=== PATIENT | male | born 1955 | race African-American/Black ===

== ENCOUNTER 2016-07-28 10:23 | Inpatient (IN) | payer MEDICARE ==
[2016-07-28] VITALS (12 sets, daily range): BP systolic 111–161; BP diastolic 70–90
[~2016-07-28] VITALS: Ht 170.2 cm; Wt 207.3 kg
--- NOTE | 2016-07-28 10:57 | PHYS DOC ---
Past Medical History Past Medical History: Alcoholism, Seizure Past Surgical History: No Surgical History Alcohol Use: Heavy Drug Use: Other Social History Narrative: history of crack, unknown today Adult General Chief Complaint Chief Complaint: SEIZURE HPI HPI Patient is a 60-year-old male who presents via private vehicle by friend for having a seizure in the car. Female friend states he is an alcoholic and has been staying with her for the past few days. She noticed he has been asking for alcohol very frequently, so she thinks he is drinking less than usual. He does not answer questions at this time. Review of Systems Review of Systems Unable to assess secondary to altered mental status Current Medications Current Medications Current Medications Medications (Trade) Dose Ordered Sig/Jason Start Time Stop Time Status Last Admin Dose Admin Acetaminophen (Tylenol) 650 mg PRN Q4HRS PRN 07/28/16 11:30 07/29/16 11:29 Diazepam (Valium) 5 mg 1X ONCE 07/28/16 12:30 07/28/16 12:31 07/28/16 12:03 5 MG Lorazepam (Ativan) 2 mg 1X ONCE 07/28/16 10:45 07/28/16 10:46 DC 07/28/16 10:32 2 MG Ondansetron HCl (Zofran) 4 mg PRN Q8HRS PRN 07/28/16 11:30 07/29/16 11:29 Sodium Chloride 1,000 ml @ 150 mls/hr Q6H40M 07/28/16 11:27 07/29/16 11:26 Allergies Allergies Allergies Coded Allergies Type Severity Reaction Last Updated Verified No Known Drug Allergies 07/28/16 No Physical Exam Physical Exam Constitutional: Well developed, well nourished, severe distress, ill appearing. [] HENT: Normocephalic, atraumatic, bilateral external ears normal, oropharynx moist, no oral exudates, nose normal. [] Eyes: PERRLA, EOMI, conjunctiva normal, no discharge. [] Neck: Normal range of motion, no tenderness, supple, no stridor. [] Cardiovascular: Regular tachycardia [] Lungs & Thorax: Bilateral breath sounds clear to auscultation [] Abdomen: Bowel sounds normal, soft, no tenderness. [] Skin: Warm, diaphoretic, no erythema, no rash. [] Back: No palpable abnormality. [] Extremities: No tenderness, no edema. [] Neurologic: Sleepy, localizes painful stimuli, opens eyes to painful stimuli, moans to painful stimuli. [] Psychologic: Unable to assess secondary to altered mental status. [] Current Patient Data Vital Signs Vital Signs Date Time Temp Pulse Resp B/P (MAP) Pulse Ox O2 Delivery O2 Flow Rate FiO2 07/28/16 10:27 99.1 104 18 138/94 (109) 98 Room Air 99.1 Lab Values Laboratory Tests Test 07/28/16 10:30 07/28/16 10:55 White Blood Count 4.5 x10^3/uL (4.0-11.0) Red Blood Count 4.27 x10^6/uL (4.30-5.70) L Hemoglobin 13.7 g/dL (13.0-17.5) Hematocrit 39.4 % (39.0-53.0) Mean Corpuscular Volume 92 fL (79-100) Mean Corpuscular Hemoglobin 32 pg (25-35) Mean Corpuscular Hemoglobin Concent 35 g/dL (31-37) Red Cell Distribution Width 14.4 % (11.5-14.5) Platelet Count 111 x10^3/uL (140-400) L Neutrophils (%) (Auto) 42 % (31-73) Lymphocytes (%) (Auto) 39 % (24-48) Monocytes (%) (Auto) 13 % (0-9) H Eosinophils (%) (Auto) 5 % (0-3) H Basophils (%) (Auto) 2 % (0-3) Neutrophils # (Auto) 1.9 x10^3uL (1.8-7.7) Lymphocytes # (Auto) 1.7 x10^3/uL (1.0-4.8) Monocytes # (Auto) 0.6 x10^3/uL (0.0-1.1) Eosinophils # (Auto) 0.2 x10^3/uL (0.0-0.7) Basophils # (Auto) 0.1 x10^3/uL (0.0-0.2) Prothrombin Time 12.9 SEC (11.7-14.0) Prothrombin Time INR 1.0 (0.8-1.1) PTT 30 SEC (24-38) Sodium Level 143 mmol/L (136-145) Potassium Level 3.0 mmol/L (3.5-5.1) L Chloride Level 100 mmol/L (98-107) Carbon Dioxide Level 25 mmol/L (21-32) Anion Gap 18 (6-14) H Blood Urea Nitrogen 7 mg/dL (8-26) L Creatinine 1.1 mg/dL (0.7-1.3) Estimated GFR (Cockcroft-Gault) 68.5 Glucose Level 127 mg/dL (70-99) H Calcium Level 8.1 mg/dL (8.5-10.1) L Magnesium Level 1.4 mg/dL (1.8-2.4) L Total Bilirubin 2.8 mg/dL (0.2-1.0) H Direct Bilirubin 1.3 mg/dL (0.0-0.2) H Aspartate Amino Transferase (AST) 847 U/L (15-37) H Alanine Aminotransferase (ALT) 425 U/L (16-63) H Alkaline Phosphatase 111 U/L (46-116) Total Protein 7.8 g/dL (6.4-8.2) Albumin 3.5 g/dL (3.4-5.0) Ethyl Alcohol Level 15 mg/dL (0-10) H Urine Collection Type Unknown Urine Color [place] Urine Clarity Clear Urine pH 7.0 Urine Specific [place] 1.020 Urine Protein 100 mg/dL (NEG-TRACE) Urine Glucose (UA) Negative mg/dL (NEG) Urine Ketones (Stick) 40 mg/dL (NEG) Urine Blood Trace (NEG) Urine Nitrite Negative (NEG) Urine Bilirubin Negative (NEG) Urine Urobilinogen Dipstick 1.0 mg/dL (0.2 mg/dL) Urine Leukocyte Esterase Negative (NEG) Urine RBC 0 /HPF (0-2) Urine WBC 0 /HPF (0-4) Urine Squamous Epithelial Cells Occ /LPF Urine Bacteria 0 /HPF (0-FEW) Urine Hyaline Casts Few /HPF Urine Mucus Mod /LPF Urine Opiates Screen Neg (NEG) Urine Methadone Screen Neg (NEG) Urine Barbiturates Neg (NEG) Urine Phencyclidine Screen Neg (NEG) Urine Amphetamine/Methamphetamine Neg (NEG) Urine Benzodiazepines Screen Neg (NEG) Urine Cocaine Screen Neg (NEG) Urine Cannabinoids Screen Neg (NEG) Urine Ethyl Alcohol Pos (NEG) Laboratory Tests 07/28/16 10:30 Laboratory Tests 07/28/16 10:30 EKG EKG EKG as interpreted by me as sinus tachycardia, rate 110, no ST elevations, T- wave inversions in lateral leads, no ectopy, normal intervals Course & Med Decision Making Course & Med Decision Making Pertinent Labs and Imaging studies reviewed. (See chart for details) Patient arrived and had a witnessed seizure concerning for severe alcohol withdrawal. He has altered sensorium, but has made some improvement and is following commands under observation in the emergency department. His laboratory evaluation reveals hypokalemia, hypomagnesemia, and transaminitis. Potassium, magnesium, and banana bag ordered. He will be admitted to the ICU for alcohol withdrawal delirium. Discussed case with Dr. Abreu, who will admit. Draggiuliana Disclaimer Dragon Disclaimer This electronic medical record was generated, in whole or in part, using a voice recognition dictation system. Departure Departure Impression: Primary Impression: Alcohol withdrawal seizure Additional Impressions: Hypokalemia Hypomagnesemia Alcoholic hepatitis Disposition: ADMITTED INPATIENT Condition: CRITICAL Problem Qualifiers Primary Impression: Alcohol withdrawal seizure Complication of substance-induced condition: with delirium Qualified Codes: F10.231 - Alcohol dependence with withdrawal delirium Additional Impressions: Alcoholic hepatitis Ascites presence: without ascites Qualified Codes: K70.10 - Alcoholic hepatitis without ascites Sultana ESCALANTE MD Jul 28, 2016 10:57
[2016-07-28] MEDS ORDERED: IV NORMAL SALINE 1000ML BAG 1,000 ML IV ONE (11:00)
--- NOTE | 2016-07-28 11:03 | EKG ---
[facility] [address] [place] [address] Test Date: 2016-07-28 Test Time: 10:42:12 Pat Name: ARIC GAMING Department: Room: Gender: M [employer] Clerk: : [id number] Requested By: Sultana ESCALANTE Order Number: [id number] Reading MD: Angelique Dickson Measurements Intervals Seale Rate: 110 P: 44 NH: 144 QRS: 3 QRSD: 100 T: -176 QT: 356 QTc: 488 Interpretive Statements SINUS TACHYCARDIA ATRIAL PREMATURE COMPLEX(ES) LEFT ATRIAL ABNORMALITY LVH WITH REPOLARIZATION ABNORMALITY ALSO CONSIDER MYOCARDIAL ISCHEMIA ABNORMAL ECG RI6.01 No previous ECG available for comparison Electronically Signed On 07-30-2016 22:37:17 CDT by Angelique Dickson
[2016-07-28 11:10] LABS: BILIRUBIN,URINE NEGATIVE (NEG); GLUCOSE,URINE NEGATIVE (NEG); NITRITE,URINE NEGATIVE (NEG); PROTEIN,URINE 100 mg/dL (NEG-TRACE)
[2016-07-28 11:13] LABS: BASO # 0.1 x10^3/uL (0.0-0.2); BASO % 2 % (0-3); EOS % 5 % (0-3); HEMATOCRIT 39.4 % (39.0-53.0); HEMOGLOBIN 13.7 g/dL (13.0-17.5); LYMPH # 1.7 x10^3/uL (1.0-4.8); LYMPH % 39 % (24-48); MEAN CORPUSCULAR HEMOGLOBIN 32 pg (25-35); MEAN CORPUSCULAR HGB CONC 35 g/dL (31-37); MEAN CORPUSCULAR VOLUME 92 fL (79-100); MONO % 13 % (0-9); NEUT % 42 % (31-73); PLATELET COUNT 111 x10^3/uL (140-400); PROTHROMBIN TIME PATIENT 12.9 SEC (11.7-14.0); RED BLOOD COUNT 4.27 x10^6/uL (4.30-5.70); RED CELL DISTRIBUTION WIDTH 14.4 % (11.5-14.5); WHITE BLOOD COUNT 4.5 x10^3/uL (4.0-11.0)
[2016-07-28 11:16] LABS: CALCIUM 8.1 mg/dL (8.5-10.1); CREATININE 1.1 mg/dL (0.7-1.3); GFR 68.5
[2016-07-28 11:19] LABS: BARBITURATES NEG (NEG); BENZODIAZEPINES NEG (NEG); CANNABINOIDS NEG (NEG); COCAINE NEG (NEG); METHADONE NEG (NEG); OPIATES NEG (NEG); PHENCYCLIDINE NEG (NEG)
--- NOTE | 2016-07-28 11:19 | ACF ---
Admission Forms Criteria SEIZURE Clinical Indications for Admission to Inpatient Care (Place 'X' for any and all applicable criteria): Admission is indicated for seizure and ANY ONE of the following(1)(2)(3)(4)(5): [X]I. Inpatient admission required rather than observation care (Also use Seizure: Observation Care Criteria as appropriate) because of ANY ONE of the following: [ ]a) Altered mental status that is severe or persistent [ ]b) New focal neurologic deficit that is severe or persistent [ ]c) Metabolic disorder (eg, hypoglycemia, hyponatremia) that is severe or persistent [X]d) Recurrent seizure [ ]e) Outpatient antiseizure regimen cannot be established (eg , patient cannot tolerate medication, initiation requires inpatient care) [ ]f) Need for ongoing intravenous infusion of antiseizure medication [ ]g) Cardiac arrhythmias of immediate concern [ ]h) Cerebral bleeding, hydrocephalus, or vasospasm monitoring (14) [ ]i) Increased intracranial pressure or cerebral edema monitoring (15) [ ]j) Other treatment or monitoring requiring inpatient admission [ ]II. Status epilepticus [A] or repetitive seizures not controlled with emergent treatment (6)(8) [ ]III. Brain disorder (eg, tumor, edema, and hydrocephalus) that requiring monitoring or intervention available only at inpatient level of care. [ ]IV. Brain insult (eg, severe trauma, stroke, drug toxicity, or withdrawal) that requires monitoring or intervention available only at inpatient level of care (10)(11) Extended stay beyond goal length of stay may be needed for (22) [ ]a) Complications of status epilepticus [ ]b) Refractory status epilepticus [ ]c) Etiology-specific therapy for conditions such as [employer] infection, head injury,eclampsia, severe metabolic abnormalities, and brain tumor [ ]d) Residual neurologic damage, [ ]e) Initiation of significant change to anticonvulsant treatment [ ]f) Older patients (65 years or older) [ ]g) Patient requiring intubation (eg, to protect airway) The original [employer] content created by [employer] has been revised. The portions of the content which have been revised are identified through the use of italic text or in bold, and [employer] has neither reviewed nor approved the modified material. All other unmodified content is copyright [facility] [employer]. Please see references footnoted in the original [facility] edition 2016 Admission Criteria Met?: Yes AJ MARIE Jul 28, 2016 11:19
[2016-07-28 11:21] LABS: RBC,URINE 0 /HPF (0-2); WBC,URINE 0 /HPF (0-4)
[2016-07-28 11:22] LABS: BACTERIA,URINE 0 /HPF (0-FEW); SQUAMOUS EPITHELIAL CELL,UR OCC /LPF
--- NOTE | 2016-07-28 11:23 | ACF ---
Admit Criteria Forms Admit Criteria Forms Admit Criteria Forms ALCOHOL AND PSYCHOACTIVE SUBSTANCE WITHDRAWAL Clinical Indications for Inpatient Care (Place ' X' for any and all applicable criteria): Ongoing inpatient care may be indicated for substance withdrawal[B][C] with ANY ONE of the following(1)(2)(3)(4)(21): [ ]I. Delirium due to alcohol or sedative[D] withdrawal is present. [X]II. Marked signs of withdrawal are present as indicated by ANY ONE of the following(15)(22)(23) [ ]a) Heart rate greater than 120 beats per minute is present. [ ]b) Severe vomiting is present (eg, precludes maintenance of oral hydration). [ ]c) Grossly visible tremor is present. [ ]d) Profuse perspiration is present. [ ]e) Temperature greater than 101 degrees F (38.3 degrees C) is present. [X]f) Other signs of severe withdrawal are present (eg, Altered mental status ) [ ]g) Severe withdrawal identified by standardized assessment score[A] [ ]III. Signs of withdrawal that require continued inpatient treatment as indicated by ANY ONE of the following(15)(22)(23): [ ]a) Inadequate response to pharmacotherapy (eg, benzodiazepines) [ ]b) Outpatient or lower level of care is not feasible or appropriate (eg, unavailable or inappropriate to patient condition or treatment history). [X]IV. Withdrawal signs with high-risk indicator are present as manifested by ALL of the following[A](15)(22)(23) [X]a) Signs of withdrawal are present as indicated by ANY ONE of the following: [ ]i. Tachycardia is present. [ ]ii. Nausea or vomiting is present. [ ]iii. Tremor is present. [ ]iv. Increased perspiration is present. [X]v. Other signs of withdrawal are present. [ ]vi. Withdrawal identified by standardized assessment score [A] [ ]b) Elevated risk due to historical or comorbid factor is present as indicated by ANY ONE of the following: [ ]i. History of delirium due to withdrawal is present. [ ]ii. History of seizures due to withdrawal is present.[E] [ ]iii. Intrinsic seizure disorder (epilepsy) is present. [ ]iv. Patient is . [ ]v. Other significant medical history (eg, severe cardiac disease) is present, which is assessed to be at risk for destabilization due to withdrawal. [ ]V. Serious electrolyte abnormalities (eg, hyponatremia, hypokalemia, hypophosphatemia) requiring correction performable only in inpatient setting(6)(25) [ ]. Severe hypoglycemia requiring glucose infusions performable only in inpatient setting(6) [ ]VII. Drug toxicity or instability, such as Altered mental status, respiratory depression, or arrhythmias, that requires inpatient care [ ]VIII. Danger judged unmanageable at lower level of care because of ANY ONE of the following [ ]a) Danger to self [ ]b) Danger to others [ ]c) Grave disability (eg, inability to perform self-care necessary at lower level of care) The original [employer] content created by [employer] has been revised. The portions of the content which have been revised are identified through the use of italic text or in bold. [facility] has neither reviewed nor approved the modified material. All other unmodified content is copyright [employer]. Please see references footnoted in the original [employer] edition 2016 YENY WINTER Jul 28, 2016 11:23
--- NOTE | 2016-07-28 11:23 | RAD ---
Indication change in mental status. Seizure. Noncontrast images of the head were obtained. No prior imaging of the head is available. The calvarium appears unremarkable. The visualized paranasal sinuses appear normal. There is no subdural or epidural hematoma. There is moderate atrophy. There is no mass or midline shift. No hemorrhage is seen. An acute intracranial finding is not apparent. IMPRESSION: No acute intracranial finding seen PQRS Compliance Statement: One or more of the following individualized dose reduction techniques were utilized for this examination: 1. Automated exposure control 2. Adjustment of the mA and/or kV according to patient size 3. Use of iterative reconstruction technique
[2016-07-28 11:30] LABS: ALBUMIN 3.5 g/dL (3.4-5.0); DIRECT BILIRUBIN 1.3 mg/dL (0.0-0.2); MAGNESIUM 1.4 mg/dL (1.8-2.4); TOTAL BILIRUBIN 2.8 mg/dL (0.2-1.0); TOTAL PROTEIN 7.8 g/dL (6.4-8.2)
[2016-07-28] MEDS ORDERED: ACETAMINOPHEN 325 MG TABLET. PO PRN (11:30)
[2016-07-28] MEDS ORDERED: ONDANSETRON PF 4 MG/2 ML VIAL. IV PRN (11:30)
[2016-07-28] MEDS: POTASSIUM CHLORIDE 10MEQ 100 ML IV SCH ×4 (12:47→17:14)
[2016-07-28] MEDS ORDERED: MAGNESIUM SULFATE 2GM 50 ML IV ONE (13:00)
[2016-07-28] MEDS ORDERED: MULTIVIT INFUSN,ADULT 4,VIT K 10 ML, FOLIC ACID 1 MG, THIAMINE 100 MG in IV NORMAL SALI... IV SCH (13:00)
[2016-07-28] MEDS: IV NORMAL SALINE 1000ML BAG 1,000 ML IV SCH ×2 (13:43→21:16)
[2016-07-28] MEDS ORDERED: HALOPERIDOL LACTATE 5 MG/ML VIAL. IVP PRN (14:45)
--- NOTE | 2016-07-28 18:40 | HP ---
ADMIT DATE: 07/28/2016 CHIEF COMPLAINT: Possible alcohol withdrawal seizure. HISTORY OF PRESENT ILLNESS: The patient is a pleasant middle-aged male who drinks too much. He had a seizure. We suspect it is alcohol related. I have discussed the case with the ER physician. We are going to admit the patient and give him alcohol withdrawal protocol. PAST MEDICAL HISTORY: Alcoholism and previous alcohol seizures. ALLERGIES: None. FAMILY HISTORY: Diabetes. SOCIAL HISTORY: He drinks, he smokes. No drugs. MEDICATIONS: Reviewed. REVIEW OF SYSTEMS: GENERAL: No history of weight change, weakness or fevers. SKIN: No bruising, hair changes or rashes. EYES: No blurred, double or loss of vision. NOSE AND THROAT: No history of nosebleeds, hoarseness or sore throat. HEART: No history of palpitations, chest pain or shortness of breath on exertion. LUNGS: Denies cough, hemoptysis, wheezing or shortness of breath. GASTROINTESTINAL: Denies changes in appetite, nausea, vomiting, diarrhea or constipation. GENITOURINARY: No history of frequency, urgency, hesitancy or nocturia. NEUROLOGIC: He complains of alcohol withdrawal and shaking. PSYCHIATRIC: No history of panic, anxiety or depression. ENDOCRINE: No history of heat or cold intolerance, polyuria or polydipsia. EXTREMITIES: Denies muscle weakness, joint pain, pain on walking or stiffness. PHYSICAL EXAMINATION: VITAL SIGNS: Temperature afebrile, pulse 90, respirations 18, blood pressure 144/90. GENERAL: He is alert, cooperative. HEART: Normal S1, S2. LUNGS: Clear. ABDOMEN: Soft, positive bowel sounds. EXTREMITIES: No edema. ENDOCRINE: No thyromegaly. LYMPHATICS: No cervical nodes. HEMATOPOIETIC: No bruising. SKIN: No rashes. NEUROLOGICAL: He is a little shaky. ASSESSMENT AND PLAN: Alcohol withdrawal with possible seizure. The patient has been admitted. We will give him alcohol withdrawal protocol including IV benzos, IV thiamine, and IV banana bag. Try to resume his home meds. KYLE BARBOZA DO DR: JASWANT/asmita JOB#: [id number] / [id number]
[2016-07-29] VITALS (12 sets, daily range): BP systolic 105–164; BP diastolic 30–88
[2016-07-29] MEDS: LORazepam 1 MG TABLET PO PRN (00:45)
[2016-07-29] MEDS: IV NORMAL SALINE 1000ML BAG 1,000 ML IV SCH (04:27)
[2016-07-29] MEDS ORDERED: ONDANSETRON PF 4 MG/2 ML VIAL. IV PRN (08:50)
[2016-07-29] MEDS: MULTIVIT INFUSN,ADULT 4,VIT K 10 ML, THIAMINE 100 MG, FOLIC ACID 1 MG in IV NORMAL SALI... IV SCH (09:00)
--- NOTE | 2016-07-29 09:49 | PDOC ---
PROGRESS NOTES Chief Complaint Chief Complaint 1. Acute toxic encephalopathy sec to alcohol intox 2. Unsteady gait 3. HYpokalemia, hypomagnesemia 4. DOM vasomotor 5. 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 Vitals Vital Signs Date Time Temp Pulse Resp B/P (MAP) Pulse Ox O2 Delivery O2 Flow Rate FiO2 07/29/16 06:00 72 16 129/77 (94) 100 Room Air 07/29/16 04:00 97.3 97.3 07/28/16 16:00 2.0 Physical Exam General: Alert, Oriented X3, Cooperative Heart: Regular rate Lungs: Clear Abdomen: Normal bowel sounds Extremities: No clubbing Skin: No rashes Labs LABS Laboratory Tests Test 07/28/16 10:30 07/28/16 10:55 07/28/16 13:40 White Blood Count 4.5 x10^3/uL (4.0-11.0) Red Blood Count 4.27 x10^6/uL (4.30-5.70) Hemoglobin 13.7 g/dL (13.0-17.5) Hematocrit 39.4 % (39.0-53.0) Mean Corpuscular Volume 92 fL (79-100) Mean Corpuscular Hemoglobin 32 pg (25-35) Mean Corpuscular Hemoglobin Concent 35 g/dL (31-37) Red Cell Distribution Width 14.4 % (11.5-14.5) Platelet Count 111 x10^3/uL (140-400) Neutrophils (%) (Auto) 42 % (31-73) Lymphocytes (%) (Auto) 39 % (24-48) Monocytes (%) (Auto) 13 % (0-9) Eosinophils (%) (Auto) 5 % (0-3) Basophils (%) (Auto) 2 % (0-3) Neutrophils # (Auto) 1.9 x10^3uL (1.8-7.7) Lymphocytes # (Auto) 1.7 x10^3/uL (1.0-4.8) Monocytes # (Auto) 0.6 x10^3/uL (0.0-1.1) Eosinophils # (Auto) 0.2 x10^3/uL (0.0-0.7) Basophils # (Auto) 0.1 x10^3/uL (0.0-0.2) Prothrombin Time 12.9 SEC (11.7-14.0) Prothromb Time International Ratio 1.0 (0.8-1.1) Activated Partial Thromboplast Time 30 SEC (24-38) Sodium Level 143 mmol/L (136-145) Potassium Level 3.0 mmol/L (3.5-5.1) Chloride Level 100 mmol/L (98-107) Carbon Dioxide Level 25 mmol/L (21-32) Anion Gap 18 (6-14) Blood Urea Nitrogen 7 mg/dL (8-26) Creatinine 1.1 mg/dL (0.7-1.3) Estimated GFR (Cockcroft-Gault) 68.5 Glucose Level 127 mg/dL (70-99) Calcium Level 8.1 mg/dL (8.5-10.1) Magnesium Level 1.4 mg/dL (1.8-2.4) Total Bilirubin 2.8 mg/dL (0.2-1.0) Direct Bilirubin 1.3 mg/dL (0.0-0.2) Aspartate Amino Transf (AST/SGOT) 847 U/L (15-37) Alanine Aminotransferase (ALT/SGPT) 425 U/L (16-63) Alkaline Phosphatase 111 U/L (46-116) Total Protein 7.8 g/dL (6.4-8.2) Albumin 3.5 g/dL (3.4-5.0) Ethyl Alcohol Level 15 mg/dL (0-10) Urine Collection Type Unknown Urine Color [place] Urine Clarity Clear Urine pH 7.0 Urine Specific [place] 1.020 Urine Protein 100 mg/dL (NEG-TRACE) Urine Glucose (UA) Negative mg/dL (NEG) Urine Ketones (Stick) 40 mg/dL (NEG) Urine Blood Trace (NEG) Urine Nitrite Negative (NEG) Urine Bilirubin Negative (NEG) Urine Urobilinogen Dipstick 1.0 mg/dL (0.2 mg/dL) Urine Leukocyte Esterase Negative (NEG) Urine RBC 0 /HPF (0-2) Urine WBC 0 /HPF (0-4) Urine Squamous Epithelial Cells Occ /LPF Urine Bacteria 0 /HPF (0-FEW) Urine Hyaline Casts Few /HPF Urine Mucus Mod /LPF Urine Opiates Screen Neg (NEG) Urine Methadone Screen Neg (NEG) Urine Barbiturates Neg (NEG) Urine Phencyclidine Screen Neg (NEG) Urine Amphetamine/Methamphetamine Neg (NEG) Urine Benzodiazepines Screen Neg (NEG) Urine Cocaine Screen Neg (NEG) Urine Cannabinoids Screen Neg (NEG) Urine Ethyl Alcohol Pos (NEG) Nasal Screen MRSA (PCR) Negative (Negative) Review of Systems Review of Systems unsteady gait, shaky all else is neg Assessment and Plan Assessmemt and Plan Problems Medical Problems: (1) Alcohol withdrawal seizure Status: Acute (2) Alcoholic hepatitis Status: Acute (3) Hypokalemia Status: Acute (4) Hypomagnesemia Status: Acute Problems: Comment Review of Relevant I have reviewed the following items serafin (where applicable) has been applied. Labs Laboratory Tests Test 07/28/16 10:30 07/28/16 10:55 07/28/16 13:40 White Blood Count 4.5 x10^3/uL (4.0-11.0) Red Blood Count 4.27 x10^6/uL (4.30-5.70) Hemoglobin 13.7 g/dL (13.0-17.5) Hematocrit 39.4 % (39.0-53.0) Mean Corpuscular Volume 92 fL (79-100) Mean Corpuscular Hemoglobin 32 pg (25-35) Mean Corpuscular Hemoglobin Concent 35 g/dL (31-37) Red Cell Distribution Width 14.4 % (11.5-14.5) Platelet Count 111 x10^3/uL (140-400) Neutrophils (%) (Auto) 42 % (31-73) Lymphocytes (%) (Auto) 39 % (24-48) Monocytes (%) (Auto) 13 % (0-9) Eosinophils (%) (Auto) 5 % (0-3) Basophils (%) (Auto) 2 % (0-3) Neutrophils # (Auto) 1.9 x10^3uL (1.8-7.7) Lymphocytes # (Auto) 1.7 x10^3/uL (1.0-4.8) Monocytes # (Auto) 0.6 x10^3/uL (0.0-1.1) Eosinophils # (Auto) 0.2 x10^3/uL (0.0-0.7) Basophils # (Auto) 0.1 x10^3/uL (0.0-0.2) Prothrombin Time 12.9 SEC (11.7-14.0) Prothromb Time International Ratio 1.0 (0.8-1.1) Activated Partial Thromboplast Time 30 SEC (24-38) Sodium Level 143 mmol/L (136-145) Potassium Level 3.0 mmol/L (3.5-5.1) Chloride Level 100 mmol/L (98-107) Carbon Dioxide Level 25 mmol/L (21-32) Anion Gap 18 (6-14) Blood Urea Nitrogen 7 mg/dL (8-26) Creatinine 1.1 mg/dL (0.7-1.3) Estimated GFR (Cockcroft-Gault) 68.5 Glucose Level 127 mg/dL (70-99) Calcium Level 8.1 mg/dL (8.5-10.1) Magnesium Level 1.4 mg/dL (1.8-2.4) Total Bilirubin 2.8 mg/dL (0.2-1.0) Direct Bilirubin 1.3 mg/dL (0.0-0.2) Aspartate Amino Transf (AST/SGOT) 847 U/L (15-37) Alanine Aminotransferase (ALT/SGPT) 425 U/L (16-63) Alkaline Phosphatase 111 U/L (46-116) Total Protein 7.8 g/dL (6.4-8.2) Albumin 3.5 g/dL (3.4-5.0) Ethyl Alcohol Level 15 mg/dL (0-10) Urine Collection Type Unknown Urine Color [place] Urine Clarity Clear Urine pH 7.0 Urine Specific [place] 1.020 Urine Protein 100 mg/dL (NEG-TRACE) Urine Glucose (UA) Negative mg/dL (NEG) Urine Ketones (Stick) 40 mg/dL (NEG) Urine Blood Trace (NEG) Urine Nitrite Negative (NEG) Urine Bilirubin Negative (NEG) Urine Urobilinogen Dipstick 1.0 mg/dL (0.2 mg/dL) Urine Leukocyte Esterase Negative (NEG) Urine RBC 0 /HPF (0-2) Urine WBC 0 /HPF (0-4) Urine Squamous Epithelial Cells Occ /LPF Urine Bacteria 0 /HPF (0-FEW) Urine Hyaline Casts Few /HPF Urine Mucus Mod /LPF Urine Opiates Screen Neg (NEG) Urine Methadone Screen Neg (NEG) Urine Barbiturates Neg (NEG) Urine Phencyclidine Screen Neg (NEG) Urine Amphetamine/Methamphetamine Neg (NEG) Urine Benzodiazepines Screen Neg (NEG) Urine Cocaine Screen Neg (NEG) Urine Cannabinoids Screen Neg (NEG) Urine Ethyl Alcohol Pos (NEG) Nasal Screen MRSA (PCR) Negative (Negative) Laboratory Tests Test 07/28/16 10:30 07/28/16 10:55 07/28/16 13:40 White Blood Count 4.5 x10^3/uL (4.0-11.0) Red Blood Count 4.27 x10^6/uL (4.30-5.70) Hemoglobin 13.7 g/dL (13.0-17.5) Hematocrit 39.4 % (39.0-53.0) Mean Corpuscular Volume 92 fL (79-100) Mean Corpuscular Hemoglobin 32 pg (25-35) Mean Corpuscular Hemoglobin Concent 35 g/dL (31-37) Red Cell Distribution Width 14.4 % (11.5-14.5) Platelet Count 111 x10^3/uL (140-400) Neutrophils (%) (Auto) 42 % (31-73) Lymphocytes (%) (Auto) 39 % (24-48) Monocytes (%) (Auto) 13 % (0-9) Eosinophils (%) (Auto) 5 % (0-3) Basophils (%) (Auto) 2 % (0-3) Neutrophils # (Auto) 1.9 x10^3uL (1.8-7.7) Lymphocytes # (Auto) 1.7 x10^3/uL (1.0-4.8) Monocytes # (Auto) 0.6 x10^3/uL (0.0-1.1) Eosinophils # (Auto) 0.2 x10^3/uL (0.0-0.7) Basophils # (Auto) 0.1 x10^3/uL (0.0-0.2) Prothrombin Time 12.9 SEC (11.7-14.0) Prothromb Time International Ratio 1.0 (0.8-1.1) Activated Partial Thromboplast Time 30 SEC (24-38) Sodium Level 143 mmol/L (136-145) Potassium Level 3.0 mmol/L (3.5-5.1) Chloride Level 100 mmol/L (98-107) Carbon Dioxide Level 25 mmol/L (21-32) Anion Gap 18 (6-14) Blood Urea Nitrogen 7 mg/dL (8-26) Creatinine 1.1 mg/dL (0.7-1.3) Estimated GFR (Cockcroft-Gault) 68.5 Glucose Level 127 mg/dL (70-99) Calcium Level 8.1 mg/dL (8.5-10.1) Magnesium Level 1.4 mg/dL (1.8-2.4) Total Bilirubin 2.8 mg/dL (0.2-1.0) Direct Bilirubin 1.3 mg/dL (0.0-0.2) Aspartate Amino Transf (AST/SGOT) 847 U/L (15-37) Alanine Aminotransferase (ALT/SGPT) 425 U/L (16-63) Alkaline Phosphatase 111 U/L (46-116) Total Protein 7.8 g/dL (6.4-8.2) Albumin 3.5 g/dL (3.4-5.0) Ethyl Alcohol Level 15 mg/dL (0-10) Urine Collection Type Unknown Urine Color [place] Urine Clarity Clear Urine pH 7.0 Urine Specific [place] 1.020 Urine Protein 100 mg/dL (NEG-TRACE) Urine Glucose (UA) Negative mg/dL (NEG) Urine Ketones (Stick) 40 mg/dL (NEG) Urine Blood Trace (NEG) Urine Nitrite Negative (NEG) Urine Bilirubin Negative (NEG) Urine Urobilinogen Dipstick 1.0 mg/dL (0.2 mg/dL) Urine Leukocyte Esterase Negative (NEG) Urine RBC 0 /HPF (0-2) Urine WBC 0 /HPF (0-4) Urine Squamous Epithelial Cells Occ /LPF Urine Bacteria 0 /HPF (0-FEW) Urine Hyaline Casts Few /HPF Urine Mucus Mod /LPF Urine Opiates Screen Neg (NEG) Urine Methadone Screen Neg (NEG) Urine Barbiturates Neg (NEG) Urine Phencyclidine Screen Neg (NEG) Urine Amphetamine/Methamphetamine Neg (NEG) Urine Benzodiazepines Screen Neg (NEG) Urine Cocaine Screen Neg (NEG) Urine Cannabinoids Screen Neg (NEG) Urine Ethyl Alcohol Pos (NEG) Nasal Screen MRSA (PCR) Negative (Negative) Medications Current Medications Lorazepam (Ativan) 2 mg STK-MED ONCE .ROUTE ; Start 07/28/16 at 10:31; Stop at 10:32; Status DC Lorazepam (Ativan) 2 mg 1X ONCE IV Last administered on 07/28/16 10:32; Start 07/28/16 at 10:45; Stop 07/28/16 at 10:46; Status DC Sodium Chloride 1,000 ml @ 1,000 mls/hr 1X ONCE IV Last administered on 10:50; Start 07/28/16 at 11:00; Stop 07/28/16 at 11:59; Status DC Diazepam (Valium) 10 mg 1X ONCE IV Last administered on 07/28/16 11:20; Start 07/28/16 at 11:00; Stop 07/28/16 at 11:01; Status DC Ondansetron HCl (Zofran) 4 mg PRN Q8HRS PRN IV NAUSEA/VOMITING; Start 07/28/16 at 11:30; Stop 07/29/16 at 08:51; Status DC Sodium Chloride 1,000 ml @ 150 mls/hr Q6H40M IV Last administered on 07/29/16 04:27; Start 07/28/16 at 11:27; Stop 07/29/16 at 11:26 Acetaminophen (Tylenol) 650 mg PRN Q4HRS PRN PO FEVER Last administered on 00:31; Start 07/28/16 at 11:30; Stop 07/29/16 at 11:29 Diazepam (Valium) 5 mg 1X ONCE IV Last administered on 07/28/16 12:03; Start 07/28/16 at 12:30; Stop 07/28/16 at 12:31; Status DC Multivitamins 10 ml/Folic Acid 1 mg/Thiamine HCl 100 mg/Sodium Chloride 1,011.2 ml @ 1,000 mls/ hr Q1H IV Last administered on 07/28/16 12:40; Start 07/28/16 at 13:00; Stop 07/28/16 at 13:05; Status DC Potassium Chloride 100 ml @ 100 mls/hr Q1H IV Last administered on 07/28/16 17 :14; Start 07/28/16 at 13:00; Stop 07/28/16 at 16:59; Status DC Magnesium Sulfate/ Dextrose 50 ml @ 25 mls/hr 1X ONCE IV Last administered on 07/28/16 15:06; Start 07/28/16 at 13:00; Stop 07/28/16 at 14:59; Status DC Multivitamins 10 ml/Thiamine HCl 100 mg/Folic Acid 1 mg/Sodium Chloride 1,011.2 ml @ 100 mls/ hr DAILY IV ; Start 07/29/16 at 09:00; Stop 08/03/16 at 08:59 Lorazepam (Ativan) 4 mg PRN Q1HR PRN PO For CIWA 8-14 Last administered on 00:45; Start 07/28/16 at 14:45 Haloperidol Lactate (Haldol) 5 mg PRN Q4HRS PRN IVP Hallucinatns,Confusn, Delirium; Start 07/28/16 at 14:45 Diazepam (Valium) 5 mg PRN Q5MIN PRN IV SEE COMMENT; Start 07/28/16 at 14:45 Ondansetron HCl (Zofran) 4 mg PRN Q6HRS PRN IV NAUSEA/VOMITING; Start 07/29/16 at 08:50; Stop 07/30/16 at 08:49 Alprazolam (Xanax) 0.25 mg PRN Q8HRS PRN PO ANXIETY / AGITATION; Start 07/29/16 at 09:00 Vitals/I & O Vital Sign - Last 24 Hours 07/28/16 07/28/16 07/28/16 07/28/16 10:27 10:30 10:45 11:15 Temp 99.1 99.1 Pulse 104 141 113 96 Resp 18 20 B/P (MAP) 138/94 (109) 195/107 (136) 118/81 (93) 125/77 (93) Pulse Ox 98 93 98 99 O2 Delivery Room Air Nasal Cannula Nasal Cannula Nasal Cannula O2 Flow Rate 3.0 3.0 3.0 07/28/16 07/28/16 07/28/16 07/28/16 11:30 11:45 12:33 13:03 Pulse 93 85 89 74 Resp 22 18 13 15 B/P (MAP) 116/72 (87) 115/67 (83) 153/82 (105) 147/85 (105) Pulse Ox 97 96 100 99 O2 Delivery Nasal Cannula Nasal Cannula Nasal Cannula Nasal Cannula O2 Flow Rate 3.0 3.0 2.0 2.0 07/28/16 07/28/16 07/28/16 07/28/16 13:30 13:30 13:46 14:00 Temp 97.6 97.6 97.6 97.6 Pulse 68 70 64 Resp 22 12 20 B/P (MAP) 157/89 (111) 157/89 (111) 157/89 (111) Pulse Ox 100 100 100 O2 Delivery Nasal Cannula Nasal Cannula Nasal Cannula Nasal Cannula O2 Flow Rate 2.0 2.0 2.0 2.0 07/28/16 07/28/16 07/28/16 07/28/16 15:00 16:00 16:00 17:00 Temp 97.6 97.6 Pulse 70 68 74 Resp 20 22 20 B/P (MAP) 154/82 (106) 153/79 (103) 140/80 (100) Pulse Ox 100 100 100 O2 Delivery Nasal Cannula Nasal Cannula Nasal Cannula Room Air O2 Flow Rate 2.0 2.0 2.0 07/28/16 07/28/16 07/28/16 07/28/16 18:00 19:00 20:00 20:00 Temp 99.1 99.1 Pulse 71 87 102 Resp 20 17 18 B/P (MAP) 161/82 (108) 139/77 (97) 150/90 (110) Pulse Ox 100 97 97 O2 Delivery Room Air Room Air Room Air Room Air 07/28/16 07/28/16 07/28/16 07/29/16 21:00 22:00 23:00 00:00 Pulse 98 99 90 84 Resp 17 23 30 25 B/P (MAP) 118/75 (89) 123/79 (94) 111/70 (84) 113/30 (57) Pulse Ox 98 95 98 100 O2 Delivery Room Air Room Air Room Air Room Air 07/29/16 07/29/16 07/29/16 07/29/16 00:00 01:00 02:00 03:00 Pulse 74 72 70 Resp 17 11 15 B/P (MAP) 117/74 (88) 117/73 (88) 115/70 (85) Pulse Ox 100 100 90 O2 Delivery Room Air Room Air Room Air Room Air 07/29/16 07/29/16 07/29/16 07/29/16 04:00 04:00 04:00 05:00 Temp 97.3 97.3 Pulse 69 75 Resp 18 18 B/P (MAP) 105/56 (72) 113/73 (86) Pulse Ox 100 O2 Delivery Room Air Room Air Room Air 07/29/16 06:00 Pulse 72 Resp 16 B/P (MAP) 129/77 (94) Pulse Ox 100 O2 Delivery Room Air Intake and Output 07/28/16 07/28/16 07/29/16 15:00 23:00 07:00 Intake Total 1000 ml 2003 ml 1782 ml Output Total 1100 ml 1620 ml 820 ml Balance -100 ml 383 ml 962 ml SHANICE YEAGER MD Jul 29, 2016 09:49
[2016-07-29 09:55] LABS: CALCIUM 7.4 mg/dL (8.5-10.1); CREATININE 0.9 mg/dL (0.7-1.3); GFR 104.5; MAGNESIUM 1.8 mg/dL (1.8-2.4); POTASSIUM 3.2 mmol/L (3.5-5.1)
[2016-07-29] MEDS: cloNIDine HCL 0.1 MG TABLET PO SCH ×3 (10:00→21:56)
[2016-07-29] MEDS ORDERED: cloNIDine HCL 0.1 MG TABLET PO PRN (10:00)
[2016-07-29] MEDS ORDERED: POTASSIUM CHLORIDE 20 MEQ TABLET.ER. PO ONE (11:30)
[2016-07-29] MEDS: ALPRAZolam 0.25 MG TABLET PO PRN (23:30)
[2016-07-30] VITALS (7 sets, daily range): BP systolic 111–143; BP diastolic 69–90
[2016-07-30] MEDS: cloNIDine HCL 0.1 MG TABLET PO SCH ×3 (06:06→22:04)
[2016-07-30] MEDS: MULTIVIT INFUSN,ADULT 4,VIT K 10 ML, THIAMINE 100 MG, FOLIC ACID 1 MG in IV NORMAL SALI... IV SCH (07:55)
--- NOTE | 2016-07-30 14:48 | RAD ---
Indication chronic pain associated with an injury 20 years ago. Externally and internally rotated views of the right shoulder as well as a Y view were obtained. No acute finding is seen. There are some mild degenerative changes in the area of the greater tubercle. There are no significant degenerative changes at the AC joint.
[2016-07-30] MEDS: ALPRAZolam 0.25 MG TABLET PO PRN (20:23)
--- NOTE | 2016-07-30 22:59 | PDOC ---
PROGRESS NOTES Chief Complaint Chief Complaint 1. Acute toxic encephalopathy sec to alcohol intox 2. Unsteady gait 3. HYpokalemia, hypomagnesemia 4. DOM vasomotor 5. 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 Acute toxic encephalopathy sec to alcohol intox 2. Unsteady gait 3. HYpokalemia, hypomagnesemia 4. DOM vasomotor 5. ELevated LFTS in an alcoholic 6, Sinus tachy in the background of etoh consumption Plan ETOH protocol PTOT Labs Home meds Problems: Comment Review of Relevant I have reviewed the following items serafin (where applicable) has been applied. Labs Laboratory Tests Test 07/29/16 09:25 Sodium Level 139 mmol/L (136-145) Potassium Level 3.2 mmol/L (3.5-5.1) Chloride Level 104 mmol/L (98-107) Carbon Dioxide Level 30 mmol/L (21-32) Anion Gap 5 (6-14) Blood Urea Nitrogen 3 mg/dL (8-26) Creatinine 0.9 mg/dL (0.7-1.3) Estimated GFR (Cockcroft-Gault) 104.5 Glucose Level 127 mg/dL (70-99) Calcium Level 7.4 mg/dL (8.5-10.1) Magnesium Level 1.8 mg/dL (1.8-2.4) Medications Current Medications Lorazepam (Ativan) 2 mg STK-MED ONCE .ROUTE ; Start 07/28/16 at 10:31; Stop at 10:32; Status DC Lorazepam (Ativan) 2 mg 1X ONCE IV Last administered on 07/28/16 10:32; Start 07/28/16 at 10:45; Stop 07/28/16 at 10:46; Status DC Sodium Chloride 1,000 ml @ 1,000 mls/hr 1X ONCE IV Last administered on 10:50; Start 07/28/16 at 11:00; Stop 07/28/16 at 11:59; Status DC Diazepam (Valium) 10 mg 1X ONCE IV Last administered on 07/28/16 11:20; Start 07/28/16 at 11:00; Stop 07/28/16 at 11:01; Status DC Ondansetron HCl (Zofran) 4 mg PRN Q8HRS PRN IV NAUSEA/VOMITING; Start 07/28/16 at 11:30; Stop 07/29/16 at 08:51; Status DC Sodium Chloride 1,000 ml @ 150 mls/hr Q6H40M IV Last administered on 07/29/16 04:27; Start 07/28/16 at 11:27; Stop 07/29/16 at 09:46; Status DC Acetaminophen (Tylenol) 650 mg PRN Q4HRS PRN PO FEVER Last administered on 00:31; Start 07/28/16 at 11:30; Stop 07/29/16 at 11:29; Status DC Diazepam (Valium) 5 mg 1X ONCE IV Last administered on 07/28/16 12:03; Start 07/28/16 at 12:30; Stop 07/28/16 at 12:31; Status DC Multivitamins 10 ml/Folic Acid 1 mg/Thiamine HCl 100 mg/Sodium Chloride 1,011.2 ml @ 1,000 mls/ hr Q1H IV Last administered on 07/28/16 12:40; Start 07/28/16 at 13:00; Stop 07/28/16 at 13:05; Status DC Potassium Chloride 100 ml @ 100 mls/hr Q1H IV Last administered on 07/28/16 17 :14; Start 07/28/16 at 13:00; Stop 07/28/16 at 16:59; Status DC Magnesium Sulfate/ Dextrose 50 ml @ 25 mls/hr 1X ONCE IV Last administered on 07/28/16 15:06; Start 07/28/16 at 13:00; Stop 07/28/16 at 14:59; Status DC Multivitamins 10 ml/Thiamine HCl 100 mg/Folic Acid 1 mg/Sodium Chloride 1,011.2 ml @ 100 mls/ hr DAILY IV Last administered on 07/30/16 07:55; Start 07/29/16 at 09:00; Stop 08/03/16 at 08:59 Lorazepam (Ativan) 4 mg PRN Q1HR PRN PO For CIWA 8-14 Last administered on 00:45; Start 07/28/16 at 14:45 Haloperidol Lactate (Haldol) 5 mg PRN Q4HRS PRN IVP Hallucinatns,Confusn, Delirium; Start 07/28/16 at 14:45 Diazepam (Valium) 5 mg PRN Q5MIN PRN IV SEE COMMENT; Start 07/28/16 at 14:45; Stop 07/29/16 at 15:59; Status DC Ondansetron HCl (Zofran) 4 mg PRN Q6HRS PRN IV NAUSEA/VOMITING; Start 07/29/16 at 08:50; Stop 07/30/16 at 08:49; Status DC Alprazolam (Xanax) 0.25 mg PRN Q8HRS PRN PO ANXIETY / AGITATION Last administered on 07/30/16 20:23; Start 07/29/16 at 09:00 Clonidine HCl (Catapres) 0.1 mg Q8HRS PO Last administered on 07/30/16 22:04; Start 07/29/16 at 10:00 Clonidine HCl (Catapres) 0.1 mg PRN Q1HR PRN PO HYPERTENSION, SEE COMMENTS; Start 07/29/16 at 10:00 Potassium Chloride (Klor-Con) 40 meq 1X ONCE PO Last administered on 07/29/16 11:30; Start 07/29/16 at 11:30; Stop 07/29/16 at 11:31; Status DC Vitals/I & O Vital Sign - Last 24 Hours 07/29/16 07/30/16 07/30/168/17 23:00 03:00 06:06 06:06 Temp 97.9 97.5 97.9 97.9 97.5 97.9 Pulse 71 53 77 77 Resp 18 18 20 B/P (MAP) 135/83 (100) 126/69 (88) 123/84 123/84 (97) Pulse Ox 99 99 100 O2 Delivery Room Air Room Air Room Air 07/30/16 07/30/16 07/30/16 07/30/16 07:00 08:00 11:06 13:46 Temp 97.9 98.1 97.9 98.1 Pulse 80 81 67 Resp 18 18 B/P (MAP) 126/78 (94) 111/82 (92) 146/85 Pulse Ox 92 96 O2 Delivery Room Air Room Air Room Air 07/30/16 07/30/16 07/30/16 07/30/16 16:00 19:00 22:04 22:51 Temp 98.6 98.1 97.9 98.6 98.1 97.9 Pulse 74 69 63 65 Resp 18 B/P (MAP) 133/90 (104) 143/86 (105) 133/79 141/77 (98) Pulse Ox 100 99 97 O2 Delivery Room Air Room Air Room Air Intake and Output 07/29/16 07/29/16 07/30/16 15:00 23:00 07:00 Intake Total 800 ml 0 ml 180 ml Output Total 150 ml 600 ml Balance 800 ml -150 ml -420 ml KYLE BARBOZA III DO Jul 30, 2016 22:59
[2016-07-31 03:00] VITALS: BP 146/84
[2016-07-31] MEDS: cloNIDine HCL 0.1 MG TABLET PO SCH ×3 (06:20→20:54)
[2016-07-31 07:00] VITALS: BP 146/90
[2016-07-31] MEDS: MULTIVIT INFUSN,ADULT 4,VIT K 10 ML, THIAMINE 100 MG, FOLIC ACID 1 MG in IV NORMAL SALI... IV SCH (09:17)
[2016-07-31 10:55] VITALS: BP 151/89
[2016-07-31] MEDS ORDERED: SIMETHICONE 80 MG TAB.CHEW PO PRN (11:15)
[2016-07-31] MEDS ORDERED: CALCIUM CARBONATE 500 MG TAB.CHEW PO PRN (11:15)
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
[2016-07-31 14:15] LABS: ALBUMIN 2.6 g/dL (3.4-5.0); ALBUMIN/GLOBULIN RATIO 0.7 (1.0-1.7); CALCIUM 8.8 mg/dL (8.5-10.1); CREATININE 0.8 mg/dL (0.7-1.3); GFR 119.7; POTASSIUM 3.9 mmol/L (3.5-5.1); TOTAL BILIRUBIN 0.6 mg/dL (0.2-1.0); TOTAL PROTEIN 6.6 g/dL (6.4-8.2)
[2016-07-31 15:00] VITALS: BP 149/69
--- NOTE | 2016-07-31 16:46 | PDOC2 ---
MIKAELA JORDAN PAC 07/31/16 1645: CONSULT Date of Consult Date of Consult DATE: 07/31/16 TIME: 16:31 Reason for Consult Reason for Consult: Right shoulder pain Identification/Chief Complaint Chief Complaint Right shoulder pain Source Source: Chart review, Patient History of Present Illness Reason for Visit: 60 year old right hand dominant unemployed alcoholic male admitted for alcoholic encephalopathy. He complains of progressive right shoulder pain and weakness over the last 20 years. He states that he has some weakness when doing overhead activities that worsens with duration of activity. 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 Past Medical History Past Medical History alcohol abuse Past Surgical History Past Surgical History: No pertinent history Family History Family History: Alcohol Abuse Social History ALCOHOL: heavy Current Problem List Problem List Problems Medical Problems: (1) Alcohol withdrawal seizure Status: Acute (2) Alcoholic hepatitis Status: Acute (3) Hypokalemia Status: Acute (4) Hypomagnesemia Status: Acute Current Medications Current Medications Current Medications Lorazepam (Ativan) 2 mg STK-MED ONCE .ROUTE ; Start 07/28/16 at 10:31; Stop at 10:32; Status DC Lorazepam (Ativan) 2 mg 1X ONCE IV Last administered on 07/28/16 10:32; Start 07/28/16 at 10:45; Stop 07/28/16 at 10:46; Status DC Sodium Chloride 1,000 ml @ 1,000 mls/hr 1X ONCE IV Last administered on 10:50; Start 07/28/16 at 11:00; Stop 07/28/16 at 11:59; Status DC Diazepam (Valium) 10 mg 1X ONCE IV Last administered on 07/28/16 11:20; Start 07/28/16 at 11:00; Stop 07/28/16 at 11:01; Status DC Ondansetron HCl (Zofran) 4 mg PRN Q8HRS PRN IV NAUSEA/VOMITING; Start 07/28/16 at 11:30; Stop 07/29/16 at 08:51; Status DC Sodium Chloride 1,000 ml @ 150 mls/hr Q6H40M IV Last administered on 07/29/16 04:27; Start 07/28/16 at 11:27; Stop 07/29/16 at 09:46; Status DC Acetaminophen (Tylenol) 650 mg PRN Q4HRS PRN PO FEVER Last administered on 00:31; Start 07/28/16 at 11:30; Stop 07/29/16 at 11:29; Status DC Diazepam (Valium) 5 mg 1X ONCE IV Last administered on 07/28/16 12:03; Start 07/28/16 at 12:30; Stop 07/28/16 at 12:31; Status DC Multivitamins 10 ml/Folic Acid 1 mg/Thiamine HCl 100 mg/Sodium Chloride 1,011.2 ml @ 1,000 mls/ hr Q1H IV Last administered on 07/28/16 12:40; Start 07/28/16 at 13:00; Stop 07/28/16 at 13:05; Status DC Potassium Chloride 100 ml @ 100 mls/hr Q1H IV Last administered on 07/28/16 17 :14; Start 07/28/16 at 13:00; Stop 07/28/16 at 16:59; Status DC Magnesium Sulfate/ Dextrose 50 ml @ 25 mls/hr 1X ONCE IV Last administered on 07/28/16 15:06; Start 07/28/16 at 13:00; Stop 07/28/16 at 14:59; Status DC Multivitamins 10 ml/Thiamine HCl 100 mg/Folic Acid 1 mg/Sodium Chloride 1,011.2 ml @ 100 mls/ hr DAILY IV Last administered on 07/31/16 09:17; Start 07/29/16 at 09:00; Stop 08/03/16 at 08:59 Lorazepam (Ativan) 4 mg PRN Q1HR PRN PO For CIWA 8-14 Last administered on 00:45; Start 07/28/16 at 14:45 Haloperidol Lactate (Haldol) 5 mg PRN Q4HRS PRN IVP Hallucinatns,Confusn, Delirium; Start 07/28/16 at 14:45 Diazepam (Valium) 5 mg PRN Q5MIN PRN IV SEE COMMENT; Start 07/28/16 at 14:45; Stop 07/29/16 at 15:59; Status DC Ondansetron HCl (Zofran) 4 mg PRN Q6HRS PRN IV NAUSEA/VOMITING; Start 07/29/16 at 08:50; Stop 07/30/16 at 08:49; Status DC Alprazolam (Xanax) 0.25 mg PRN Q8HRS PRN PO ANXIETY / AGITATION Last administered on 07/30/16 20:23; Start 07/29/16 at 09:00 Clonidine HCl (Catapres) 0.1 mg Q8HRS PO Last administered on 07/31/16 13:46; Start 07/29/16 at 10:00 Clonidine HCl (Catapres) 0.1 mg PRN Q1HR PRN PO HYPERTENSION, SEE COMMENTS; Start 07/29/16 at 10:00 Potassium Chloride (Klor-Con) 40 meq 1X ONCE PO Last administered on 07/29/16 11:30; Start 07/29/16 at 11:30; Stop 07/29/16 at 11:31; Status DC Simethicone (Gas-X) 80 mg PRN AFTMEALHC PRN PO GAS / BLOATING Last administered on 07/31/16 13:47; Start 07/31/16 at 11:15 Calcium Carbonate/ Glycine (Tums) 500 mg PRN AFTMEALHC PRN PO INDIGESTION Last administered on 07/31/16 13:47; Start 07/31/16 at 11:15 Allergies Allergies: Coded Allergies: No Known Drug Allergies (Unverified , 07/28/16) ROS General: No: Chills, Night Sweats, Fatigue, Malaise, Appetite, Other Musculoskeletal: Yes Joint Pain, Yes Joint Stiffness, Yes Muscular Weakness Physical Exam General: Alert, Oriented X3, Cooperative, No acute distress MUSCULOSKELETAL: Other (Right shoulder: 160/60/L1 4/5 Forward elevation strength 3/5 external rotation strength. Equivocal right belly press. Remainder of exam normal.) Vitals VITALS Vital Signs Date Time Temp Pulse Resp B/P (MAP) Pulse Ox O2 Delivery O2 Flow Rate FiO2 07/31/16 13:46 151/89 07/31/16 10:55 98.4 70 18 99 Room Air 98.4 Labs Labs Laboratory Tests Test 07/31/16 13:35 Sodium Level 140 mmol/L (136-145) Potassium Level 3.9 mmol/L (3.5-5.1) Chloride Level 105 mmol/L (98-107) Carbon Dioxide Level 30 mmol/L (21-32) Anion Gap 5 (6-14) Blood Urea Nitrogen 6 mg/dL (8-26) Creatinine 0.8 mg/dL (0.7-1.3) Estimated GFR (Cockcroft-Gault) 119.7 BUN/Creatinine Ratio 8 (6-20) Glucose Level 108 mg/dL (70-99) Calcium Level 8.8 mg/dL (8.5-10.1) Total Bilirubin 0.6 mg/dL (0.2-1.0) Aspartate Amino Transf (AST/SGOT) 81 U/L (15-37) Alanine Aminotransferase (ALT/SGPT) 129 U/L (16-63) Alkaline Phosphatase 115 U/L (46-116) Total Protein 6.6 g/dL (6.4-8.2) Albumin 2.6 g/dL (3.4-5.0) Albumin/Globulin Ratio 0.7 (1.0-1.7) Laboratory Tests Test 07/31/16 13:35 Sodium Level 140 mmol/L (136-145) Potassium Level 3.9 mmol/L (3.5-5.1) Chloride Level 105 mmol/L (98-107) Carbon Dioxide Level 30 mmol/L (21-32) Anion Gap 5 (6-14) Blood Urea Nitrogen 6 mg/dL (8-26) Creatinine 0.8 mg/dL (0.7-1.3) Estimated GFR (Cockcroft-Gault) 119.7 BUN/Creatinine Ratio 8 (6-20) Glucose Level 108 mg/dL (70-99) Calcium Level 8.8 mg/dL (8.5-10.1) Total Bilirubin 0.6 mg/dL (0.2-1.0) Aspartate Amino Transf (AST/SGOT) 81 U/L (15-37) Alanine Aminotransferase (ALT/SGPT) 129 U/L (16-63) Alkaline Phosphatase 115 U/L (46-116) Total Protein 6.6 g/dL (6.4-8.2) Albumin 2.6 g/dL (3.4-5.0) Albumin/Globulin Ratio 0.7 (1.0-1.7) Images Images R shoulder xrays reviewed: some GH joint space narrowing, inferior humeral osteophyte consistent with mild OA. Assessment/Plan Assessment/Plan 60 yo right hand dominant male with right shoulder pain and weakness progressively worsening over the last 20 years. Has some pain but mostly weakness with overhead activities. Likely chronic rotator cuff tear with some mild OA. Will consult therapy for some HEP while in the hospital and patient will call to schedule with us for follow up in 2-3 weeks. AYANNA RODGERS MD 07/31/16 2280: CONSULT Allergies Allergies: Coded Allergies: No Known Drug Allergies (Unverified , 07/28/16) Assessment/Plan Assessment/Plan Agree with above. I saw and examined the patient. His exam is consistent with a moderately large rotator cuff tear. He has some joint space narrowing on xrays consistent with osteoarthritis. He can follow up in the office on an elective basis for possible injections versus MRI. No acute intervention in the hospital. MIKAELA JORDAN Jul 31, 2016 16:45 AYANNA RODGERS MD Jul 31, 2016 16:49
[2016-07-31 19:00] VITALS: BP 144/82
[2016-07-31] MEDS: LORazepam 1 MG TABLET PO PRN (20:55)
[2016-07-31 23:00] VITALS: BP 137/76
[2016-08-01 04:53] LABS: BASO % 0 % (0-3); EOS % 4 % (0-3); HEMATOCRIT 34.4 % (39.0-53.0); HEMOGLOBIN 11.5 g/dL (13.0-17.5); LYMPH # 1.5 x10^3/uL (1.0-4.8); LYMPH % 25 % (24-48); MEAN CORPUSCULAR HEMOGLOBIN 32 pg (25-35); MEAN CORPUSCULAR HGB CONC 33 g/dL (31-37); MEAN CORPUSCULAR VOLUME 95 fL (79-100); MONO % 11 % (0-9); NEUT % 60 % (31-73); PLATELET COUNT 103 x10^3/uL (140-400); RED BLOOD COUNT 3.64 x10^6/uL (4.30-5.70); RED CELL DISTRIBUTION WIDTH 14.6 % (11.5-14.5); WHITE BLOOD COUNT 5.8 x10^3/uL (4.0-11.0)
[2016-08-01] MEDS: cloNIDine HCL 0.1 MG TABLET PO SCH ×2 (06:44→14:11)
[2016-08-01 07:00] VITALS: BP 147/87
[2016-08-01] MEDS ORDERED: MULTIVITAMIN with MINERAL TABLET. PO SCH (09:00)
[2016-08-01] MEDS ORDERED: FOLIC ACID 1 MG TABLET. PO SCH (09:00)
[2016-08-01] MEDS ORDERED: THIAMINE 100 MG TABLET. PO SCH (09:00)
[2016-08-01 11:00] VITALS: BP 135/89
[2016-08-01] MEDS ORDERED: ACETAMINOPHEN 325 MG TABLET. PO PRN (11:15)
[2016-08-01 14:54] VITALS: BP 139/92
== END 2016-08-01 17:30 | disposition home or self-care (01) | DRG 896 ==
LOC: ER 10:23 → EDBD 10:23 → 1 WEST ICU 10:50 → 5 NORTH 07-29 15:45
PROVIDERS: ADMIT Internal Medicine; ATTEND Internal Medicine
DX: F10.239 Alcohol dependence with withdrawal, unspecified (principal); N17.0 Acute kidney failure with tubular necrosis; G92 Toxic encephalopathy; G40.89 Other seizures; F10.229 Alcohol dependence with intoxication, unspecified; K70.10 Alcoholic hepatitis without ascites; M19.90 Unspecified osteoarthritis, unspecified site; Z83.3 Family history of diabetes mellitus; F17.210 Nicotine dependence, cigarettes, uncomplicated; E87.6 Hypokalemia; E83.42 Hypomagnesemia; G31.2 Degeneration of nervous system due to alcohol; Y90.9 Presence of alcohol in blood, level not specified; Z79.899 Other long term (current) drug therapy; Z79.1 Long term (current) use of non-steroidal anti-inflammatories (NSAID); Z79.2 Long term (current) use of antibiotics; Z79.82 Long term (current) use of aspirin; M75.100 Unspecified rotator cuff tear or rupture of unspecified shoulder, not specified as traumatic
CPT/HCPCS: 36415; 51702; 70450; 73030; 80048; 80053; 80076; 81001; 83735; 85027; 85610; 85730; 87641; 93005; 96361; 96374; 96375; 96376; G0480; G0481; J2060; J3360; J3480; J7030; J7060; 97110; 97116; 97530; 97535; 99285-25

== ENCOUNTER 2016-09-29 13:43 | Emergency (ER) | payer MEDICARE ==
[~2016-09-29] VITALS: Ht 167.6 cm; Wt 63.0 kg
--- NOTE | 2016-09-29 14:17 | PHYS DOC ---
Past Medical History Past Medical History: Alcoholism, Seizure Past Surgical History: No Surgical History Alcohol Use: Heavy Drug Use: Other Adult General HPI HPI Patient is a 61 year old [f__sex] who presents with [] Current Medications Current Medications Current Medications Medications (Trade) Dose Ordered Sig/Jason Start Time Stop Time Status Last Admin Dose Admin Acetaminophen/ Hydrocodone Bitart (Lortab 5/325) 2 tab 1X ONCE 09/29/16 14:45 09/29/16 14:46 DC Allergies Allergies Allergies Coded Allergies Type Severity Reaction Last Updated Verified No Known Drug Allergies 07/28/16 No Current Patient Data Vital Signs Vital Signs Date Time Temp Pulse Resp B/P (MAP) Pulse Ox O2 Delivery O2 Flow Rate FiO2 09/29/16 13:55 98.4 80 20 137/80 (99) 98 Room Air 98.4 Lab Values Laboratory Tests Test 09/29/16 14:21 White Blood Count 4.7 x10^3/uL (4.0-11.0) Red Blood Count 5.54 x10^6/uL (4.30-5.70) Hemoglobin 16.8 g/dL (13.0-17.5) Hematocrit 51.6 % (39.0-53.0) Mean Corpuscular Volume 93 fL (79-100) Mean Corpuscular Hemoglobin 30 pg (25-35) Mean Corpuscular Hemoglobin Concent 33 g/dL (31-37) Red Cell Distribution Width 14.0 % (11.5-14.5) Platelet Count 147 x10^3/uL (140-400) Neutrophils (%) (Auto) 49 % (31-73) Lymphocytes (%) (Auto) 34 % (24-48) Monocytes (%) (Auto) 10 % (0-9) H Eosinophils (%) (Auto) 6 % (0-3) H Basophils (%) (Auto) 1 % (0-3) Neutrophils # (Auto) 2.3 x10^3uL (1.8-7.7) Lymphocytes # (Auto) 1.6 x10^3/uL (1.0-4.8) Monocytes # (Auto) 0.5 x10^3/uL (0.0-1.1) Eosinophils # (Auto) 0.3 x10^3/uL (0.0-0.7) Basophils # (Auto) 0.1 x10^3/uL (0.0-0.2) Sodium Level 142 mmol/L (136-145) Potassium Level 4.3 mmol/L (3.5-5.1) Chloride Level 106 mmol/L (98-107) Carbon Dioxide Level 26 mmol/L (21-32) Anion Gap 10 (6-14) Blood Urea Nitrogen 7 mg/dL (8-26) L Creatinine 0.9 mg/dL (0.7-1.3) Estimated GFR (Cockcroft-Gault) 104.2 Glucose Level 92 mg/dL (70-99) Calcium Level 8.6 mg/dL (8.5-10.1) Total Bilirubin Pending Direct Bilirubin Pending Aspartate Amino Transferase (AST) Pending Alanine Aminotransferase (ALT) Pending Alkaline Phosphatase Pending Total Protein Pending Albumin Pending Lipase Pending Laboratory Tests 09/29/16 14:21 Laboratory Tests 09/29/16 14:21 EKG EKG [] Radiology/Procedures Radiology/Procedures [] Course & Med Decision Making Course & Med Decision Making Pertinent Labs and Imaging studies reviewed. (See chart for details) [] Dragon Disclaimer Dragon Disclaimer This electronic medical record was generated, in whole or in part, using a voice recognition dictation system. Departure Departure Referrals: NO PCP (PCP) Scripts Cetirizine Hcl (ZYRTEC) 10 Mg Tablet 1 TAB PO DAILY, #5 TAB 0 Refills Prov: DILLON SALCEDO MD 09/29/16 Hydrocodone Bit/Acetaminophen (HYDROCODONE-APAP 5-325 ) 1 Each Tablet 1 TAB PO PRN Q6HRS Y for PAIN, #10 TAB 0 Refills Be careful as this medication may cause you to be drowsy or tired. Do not drive on this medication. Prov: DILLON SALCEDO MD 09/29/16 DILLON SALCEDO MD Sep 29, 2016 14:17
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
[2016-09-29 14:28] LABS: BASO # 0.1 x10^3/uL (0.0-0.2); BASO % 1 % (0-3); EOS % 6 % (0-3); HEMATOCRIT 51.6 % (39.0-53.0); HEMOGLOBIN 16.8 g/dL (13.0-17.5); LYMPH # 1.6 x10^3/uL (1.0-4.8); LYMPH % 34 % (24-48); MEAN CORPUSCULAR HEMOGLOBIN 30 pg (25-35); MEAN CORPUSCULAR HGB CONC 33 g/dL (31-37); MEAN CORPUSCULAR VOLUME 93 fL (79-100); MONO % 10 % (0-9); NEUT % 49 % (31-73); PLATELET COUNT 147 x10^3/uL (140-400); RED BLOOD COUNT 5.54 x10^6/uL (4.30-5.70); WHITE BLOOD COUNT 4.7 x10^3/uL (4.0-11.0)
--- NOTE | 2016-09-29 14:35 | RAD ---
Indication chest pain. A single view of the chest was obtained. No prior imaging of the chest is available. Heart size is within normal limits. There is no gross congestive heart failure. There is no consolidated pneumonia. Significant pleural fluid is not present. There is no pneumothorax. Visualized bony structures appear grossly intact. IMPRESSION: No acute or focal process is seen in the chest
[2016-09-29 14:45] LABS: CALCIUM 8.6 mg/dL (8.5-10.1); CREATININE 0.9 mg/dL (0.7-1.3); GFR 104.2; POTASSIUM 4.3 mmol/L (3.5-5.1)
[2016-09-29] MEDS ORDERED: CETI10TA22 PO (14:45)
[2016-09-29] MEDS ORDERED: HYDROcodone/APAP 5/325MG 1 TAB TABLET PO ONE (14:45)
[2016-09-29] MEDS ORDERED: HYDR-2758 PO (14:45)
[2016-09-29 14:51] LABS: DIRECT BILIRUBIN 0.1 mg/dL (0.0-0.2); TOTAL BILIRUBIN 0.4 mg/dL (0.2-1.0)
[2016-09-29 15:03] VITALS: BP 139/76
[2016-09-29 15:03] LABS: ALBUMIN 3.8 g/dL (3.4-5.0)
--- NOTE | 2016-09-29 15:41 | EKG ---
[facility] [address] [place] [id number] Test Date: 2016-09-29 Test Time: 13:51:40 Pat Name: ARIC GAMING Department: Room: Gender: M [employer]: : 1955 Requested By: DILLON SALCEDO Order Number: [id number] Reading MD: Measurements Intervals [place] Rate: 69 P: 38 WA: 146 QRS: -3 QRSD: 92 T: 79 QT: 362 QTc: 389 Interpretive Statements SINUS RHYTHM LEFTWARD AXIS ST & T ABNORMALITY, CONSIDER LATERAL ISCHEMIA OR LEFT VENTRICULAR STRAIN ABNORMAL ECG RI6.01 No previous ECG available for comparison
== END 2016-09-29 15:13 | disposition home or self-care (01) ==
LOC: ER 13:43
DX: R07.81 Pleurodynia (principal); F10.10 Alcohol abuse, uncomplicated
CPT/HCPCS: 36415; 71010; 80048; 80076; 83690; 83880; 84484; 85027; 93005; 99285-25